=== PATIENT | male | born 1945 | race Caucasian/White ===

== ENCOUNTER 2022-01-27 18:40 | Inpatient (IN) | payer OTHER ==
[~2022-01-27] VITALS: Ht 172.7 cm; Wt 86.2 kg
[2022-01-27] MEDS ORDERED: HYDCHL25 PO (18:55)
[2022-01-27] MEDS ORDERED: LOSA25 PO (18:55)
--- NOTE | 2022-01-28 04:56 | NUR ---
SHIFT SUMMARY: PT IS ALERT AND ORIENTED. PT IS CALM AND COOPERATIVE WITH CARE. PT CALLS APPROPRIATELY. PT IS INDEPENDENT IN THE ROOM. PT DENIES PAIN, NAUSEA, VOMITING, AND SOB. PT TO HAVE AN ECHO THIS AM. PT SLEPT MUCH OF THE NIGHT WHEN NOT DISTURBED. NO ACUTE CHANGES OR COMPLICATIONS THIS SHIFT. BED IN LOW POSITION, CALL LIGHT WITHIN REACH. WILL REPORT TO DAY NURSE.
[2022-01-28 06:30] LABS: Albumin, Blood 3.5 g/dL (3.4-5.0); Albumin/Globulin Ratio 1.3 (0.8-1.8); Bun/Creatinine Ratio 24.1 (12.0-20.0); Calcium, Blood 9.1 mg/dL (8.5-10.1); Globulin, Blood 2.6 g/dL (2.2-4.0); Potassium, Blood 3.4 mmol/L (3.5-5.5); Total Protein, Blood 6.1 g/dL (6.4-8.2)
--- NOTE | 2022-01-28 18:39 | NUR ---
SHIFT SUMMARY: PT A&O, PT WAITING ON ECHOCARDIOGRAM TO BE COMPLETED BEFORE DISCHARGE. IF PT NOT ABLE TO COMPLETED ECHOCARDIOGRAM THE PT REQUESTED TO BE DISCHARGE HOME WITH . DR. GLORIA IS AWARE AND SPOKE WITH PT ABOUT OPTIONS FOR COMPLETEING THE ECHO WHILE ADMITTED AND OUTPATIENT OPTIONS. PT IS RESTING IN BED WITH NO COMPLAINTS OF PAIN OR DISCOMFORT THROUGHOUT THE SHIFT. CVALL LIGHT WITHIN REACH.
--- NOTE | 2022-01-29 05:31 | NUR ---
SHIFT SUMMARY: PT IS ALERT AND ORIENTED. PT IS CALM AND COOPERATIVE WITH CARE. PT CALLS APPROPRIATELY. PT IS INDEPENDENT IN THE ROOM. PT DENIES PAIN, NAUSEA, VOMITING, AND SOB. ECHO SCHEDULED FOR TODAY, PROBABLE DC AFTER. BED IN LOW POSITION, CALL LIGHT WITHIN REACH. WILL REPORT TO DAY NURSE.
--- NOTE | 2022-01-29 18:47 | NUR ---
SHIFT SUMMARY: PT A&O, PLEASANT. PT COMPLETED ECHO RESULT READ BY . DR. ZAMAN ORDERED MEDICAL AUTHORIZATION SPECIALIST CONSULT. DR. MOROCHO WAS PAGED, SHE ORDERED CHEST X-RAY 2V, STRICT I&0'S. PT CONTIUNED ON IV LASIX AND PO POTASSIUM. PT PRESENT WITH PHONE CALL TO DR. ZAMAN ON RESULTS OF ECHO. PT HAS FINE CRACKLES IN HIS RIGHT MID LOBE. PT GETS SOB ON EXTERTION. PT RESTING IN BED WITH CALL LIGHT WITHIN REACH.
--- NOTE | 2022-01-30 01:11 | NUR ---
SHIFT SUMMARY PLEASANT 76-YEAR-OLD MALE, FULL CODE. A&O X4. INDEPENDENT IN ROOM, CONTINENT. REGULAR DIET. PTN HAD CARDIAC CONSULT AND POSSIBLE CARDIAC CATHETERIZATION IN MORNING, SO NPO AFTER MIDNIGHT IN THE CASE OF THIS PROCEDURE. PRIOR TO THAT FLUID RESTRICTION AT 1500 CC SET. NEW PERIPHERAL IV PLACED IN LEFT FOREARM THIS SHIFT. CONTINUE TO MONITOR.
[2022-01-30 04:45] LABS: BASOPHILS ABSOLUTE AUTO 0.04 K/mm3 (0.00-0.23); BASOPHILS PERCENT AUTO 1 % (0-2); EOSINOPHILS ABSOLUTE AUTO 0.06 K/mm3 (0.00-0.68); EOSINOPHILS PERCENT AUTO 1 % (0-6); Hematocrit 45.2 % (37.0-53.0); Hemoglobin 14.7 g/dL (13.5-17.5); IMMATURE GRAN ABSOLUTE AUTO 0.05 K/mm3 (0.00-0.10); IMMATURE GRAN PERCENT AUTO 1 % (0-1); LYMPHOCYTES ABSOLUTE AUTO 1.93 K/mm3 (0.84-5.20); LYMPHOCYTES PERCENT AUTO 22 % (21-46); MONOCYTES ABSOLUTE AUTO 0.81 K/mm3 (0.16-1.47); MONOCYTES PERCENT AUTO 9 % (4-13); Mean Corpuscular HGB 29.9 pg (26.0-34.0); Mean Corpuscular HGB Conc 32.5 g/dL (31.5-36.5); Mean Corpuscular Volume 92 fL (80-100); NEUTROPHILS ABSOLUTE AUTO 5.98 K/mm3 (1.96-9.15); NEUTROPHILS PERCENT AUTO 67 % (41-73); Platelet Count 234 K/mm3 (150-400); RDW Standard Deviation 46.6 fL (35.1-46.3); Red Blood Cell Count 4.92 M/mm3 (4.30-5.90); White Blood Cell Count 8.87 K/mm3 (4.00-11.30)
[2022-01-30 04:48] LABS: Mean Platelet Volume 13.7 fL (9.1-12.4)
[2022-01-30 05:08] LABS: Alanine Aminotransfer (ALT/SGP 49 U/L (12-78); Anion Gap 8 mmol/L (6-16); Aspartate Aminotrans (AST/SGOT 42 U/L (12-37); Blood Urea Nitrogen 29 mg/dL (8-24); Bun/Creatinine Ratio 29.6 (12.0-20.0); CHOL/HDL RATIO 3.8; CO2, Blood 27 mmol/L (21-32); Calcium, Blood 9.6 mg/dL (8.5-10.1); Chloride, Blood 101 mmol/L (98-108); Cholesterol 117 mg/dL (50-200); Creatinine, Blood 0.98 mg/dL (0.60-1.20); Glomerular Filtration Rate 80 (60-); Glucose, Blood 143 mg/dL (70-99); HDL Cholesterol 31 mg/dL (>39); LDL/HDL RATIO 2.2; Low Density Lipoprotein Chol 68 mg/dL (0-110); Potassium, Blood 3.9 mmol/L (3.5-5.5); Sodium, Blood 136 mmol/L (136-145); Triglycerides 91 mg/dL (30-160); Very Low Density Lipoprot Chol 18 mg/dL (6-32)
--- NOTE | 2022-01-30 05:41 | NUR ---
This customs entry writer assumed care of patient after 214. Patient has expressed no needs this am. He has been NPO for possible proceedure. He has been sitting on the edge of the bed, and resting lying down. Tele shows sinus tach/sinus rhythm with BBB and occ PAC's. Will continue to monitor.
[2022-01-30] MEDS ORDERED: FURO20 PO (12:28)
[2022-01-30] MEDS ORDERED: POTA10T PO (12:29)
--- NOTE | 2022-01-30 14:17 | NUR ---
DISCHARGE SUMMARY: PT EDUCATED ON DISCHARGE INSTRUCTIONS, MEDICATIONS AND FOLLOW-UP CARE PLAN. RECORDS PRINTED AND SENT WITH PT TO TAKE TO [facility]. PT COMPLETED POLST COMFORT MEASURES ONLY AND DR. ZAMAN SIGNED PRIOR TO LEAVING. ASSISTED PT WITH PACKING UP BELONGINGS AND IV REMOVED. PT ESCORTED TO POV WITH BY DYE MACHINE OPERATOR VIA WC.
== END 2022-01-30 14:01 | disposition home or self-care (01) | DRG 291 ==
LOC: ER 18:40 → ERHOLD 18:41 → MEDS 18:41
PROVIDERS: Internal Medicine Cardiovascular Disease; Student in an Organized Health Care Education/Training Program; ADMIT Internal Medicine
DX: I11.0 Hypertensive heart disease with heart failure (principal); I50.41 Acute combined systolic (congestive) and diastolic (congestive) heart failure; E78.5 Hyperlipidemia, unspecified; I50.811 Acute right heart failure; I35.0 Nonrheumatic aortic (valve) stenosis; E11.9 Type 2 diabetes mellitus without complications; I50.82 Biventricular heart failure; I71.2 Thoracic aortic aneurysm, without rupture; E87.6 Hypokalemia; J44.9 Chronic obstructive pulmonary disease, unspecified; Z86.16 Personal history of COVID-19; Z87.891 Personal history of nicotine dependence; Z87.442 Personal history of urinary calculi; Z85.828 Personal history of other malignant neoplasm of skin; Z98.890 Other specified postprocedural states; Z88.4 Allergy status to anesthetic agent; Z79.899 Other long term (current) drug therapy
CPT/HCPCS: 36415; 71046; 80048; 80053; 80061; 83036; 84443; 84450; 84460; 84484; 85025; 93005; 93010; 93306; 94760; 99285-25; A9270; G0378; J1650; J1940

== ENCOUNTER 2022-02-01 16:07 | Inpatient (IN) | payer OTHER ==
[~2022-02-01] VITALS: Ht 172.7 cm; Wt 83.4 kg
[~2022-02-01 16:07] MED LIST: FURO20 PO; HYDCHL25 PO; LOSA25 PO; POTA10T PO
[2022-02-01 16:51] LABS: BASOPHILS ABSOLUTE AUTO 0.03 K/mm3 (0.00-0.23); BASOPHILS PERCENT AUTO 0 % (0-2); EOSINOPHILS PERCENT AUTO 0 % (0-6); Hematocrit 44.9 % (37.0-53.0); Hemoglobin 14.8 g/dL (13.5-17.5); IMMATURE GRAN ABSOLUTE AUTO 0.06 K/mm3 (0.00-0.10); IMMATURE GRAN PERCENT AUTO 1 % (0-1); LYMPHOCYTES ABSOLUTE AUTO 1.27 K/mm3 (0.84-5.20); LYMPHOCYTES PERCENT AUTO 13 % (21-46); MONOCYTES ABSOLUTE AUTO 1.13 K/mm3 (0.16-1.47); MONOCYTES PERCENT AUTO 11 % (4-13); Mean Corpuscular Volume 91 fL (80-100); Mean Platelet Volume 13.7 fL (9.1-12.4); NEUTROPHILS ABSOLUTE AUTO 7.46 K/mm3 (1.96-9.15); NEUTROPHILS PERCENT AUTO 75 % (41-73); Platelet Count 210 K/mm3 (150-400); RDW Coefficient Variation 14.1 % (11.7-14.2); RDW Standard Deviation 46.4 fL (35.1-46.3); Red Blood Cell Count 4.93 M/mm3 (4.30-5.90); White Blood Cell Count 9.95 K/mm3 (4.00-11.30)
[2022-02-01] MEDS ORDERED: Vitamin D1000 UNI1 PO (17:00)
[2022-02-01] MEDS ORDERED: ASCO500 PO (17:01)
[2022-02-01] MEDS ORDERED: B-12500 MC2 PO (17:01)
[2022-02-01] MEDS ORDERED: LOSA25 PO (17:02)
[2022-02-01 17:17] LABS: Magnesium, Blood 2.2 mg/dL (1.6-2.4)
[2022-02-01 17:30] LABS: Albumin, Blood 4.1 g/dL (3.4-5.0); Albumin/Globulin Ratio 1.5 (0.8-1.8); Bilirubin, Total 2.1 mg/dL (0.1-1.0); Bun/Creatinine Ratio 33.6 (12.0-20.0); Calcium, Blood 9.3 mg/dL (8.5-10.1); Creatinine, Blood 1.13 mg/dL (0.60-1.20); Globulin, Blood 2.7 g/dL (2.2-4.0); Potassium, Blood 4.6 mmol/L (3.5-5.5); Total Protein, Blood 6.8 g/dL (6.4-8.2)
[2022-02-01 22:37] LABS: International Normalized Ratio 1.59; Prothrombin Time Results 16.2 Sec (9.7-11.5)
--- NOTE | 2022-02-02 00:01 | NUR ---
PT ARRIVED TO ROOM FROM ED AT 2051 VIA W/C. V/S OBTAINED. URINAL AT BEDSIDE. C/O ORTHOPNEA AND DYSPNEA UPON EXERTION; SPO2 >92% ON RA. LUNG SOUNDS CLEAR WITHOUT RHONCI OR RALES.
--- NOTE | 2022-02-02 00:05 | NUR ---
CALL TO CARDIOLOGY OFFICE R/T CONSULT W/ DR LIZ. SPOKE WITH KAREEM @ ANSWERING SERVICE. PT WILL BE SEEN @ 0700 TODAY.
--- NOTE | 2022-02-02 00:54 | NUR ---
PT NOTED TO BE AWAKE DURING ROUNDS. C/O ORTHOPNEA. ALL LIQUIDS REMOVED FROM SIDE OF BED D/T NPO AFTER MIDNIGHT STATUS. PT VOICES UNDERSTANDING. SPOT2 >98%.
--- NOTE | 2022-02-02 04:37 | NUR ---
A&Ox4. PLEASANT AND COOPERATIVE WITH CARE. NOCTURIA R/T IV LASIX GIVEN AT 2200. AMBULATES INDEPENDENTLY WITHIN ROOM. DYSPNEA UPON EXERTION AND ORTHOPNEA NOTED WITH NONPRODUCTIVE COUGH. SCHEDULED TO BE SEEN BY MILLING MACHINE TENDER IN AM AND HAS BEEN NPO SINCE MIDNIGHT. WILL REPORT TO ONCOMING RN.
[2022-02-02 05:37] LABS: BASOPHILS ABSOLUTE AUTO 0.05 K/mm3 (0.00-0.23); BASOPHILS PERCENT AUTO 0 % (0-2); EOSINOPHILS PERCENT AUTO 0 % (0-6); Hematocrit 45.1 % (37.0-53.0); Hemoglobin 15.1 g/dL (13.5-17.5); IMMATURE GRAN PERCENT AUTO 1 % (0-1); LYMPHOCYTES ABSOLUTE AUTO 1.03 K/mm3 (0.84-5.20); LYMPHOCYTES PERCENT AUTO 7 % (21-46); MONOCYTES ABSOLUTE AUTO 1.78 K/mm3 (0.16-1.47); MONOCYTES PERCENT AUTO 12 % (4-13); Mean Corpuscular HGB 30.2 pg (26.0-34.0); Mean Corpuscular HGB Conc 33.5 g/dL (31.5-36.5); Mean Corpuscular Volume 90 fL (80-100); NEUTROPHILS ABSOLUTE AUTO 12.22 K/mm3 (1.96-9.15); NEUTROPHILS PERCENT AUTO 80 % (41-73); Platelet Count 200 K/mm3 (150-400); RDW Standard Deviation 45.1 fL (35.1-46.3); White Blood Cell Count 15.28 K/mm3 (4.00-11.30)
[2022-02-02 05:49] LABS: Mean Platelet Volume 14.3 fL (9.1-12.4)
[2022-02-02 08:12] LABS: Albumin, Blood 3.8 g/dL (3.4-5.0); Albumin/Globulin Ratio 1.4 (0.8-1.8); Bilirubin, Total 2.6 mg/dL (0.1-1.0); Bun/Creatinine Ratio 38.5 (12.0-20.0); Calcium, Blood 8.7 mg/dL (8.5-10.1); Creatinine, Blood 1.22 mg/dL (0.60-1.20); Globulin, Blood 2.8 g/dL (2.2-4.0); Potassium, Blood 4.4 mmol/L (3.5-5.5); Total Protein, Blood 6.6 g/dL (6.4-8.2)
[2022-02-02 12:52] LABS: SARS-Cov-2 (COVID-19) PCR, MMC NEGATIVE (NEGATIVE)
--- NOTE | 2022-02-02 14:06 | NUR ---
Brief supportive visit this afternoon. Pt resting in bed with his eyes closed. Pt wakes to gentle verbal stimuli. Pt denies pain and dyspnea at this time. Pt struggles with staying awake with eyes drifting closed. Pt reports being and having 4 children of his own and his having 3 children of her own. He [place] all [place] report splan for angiogram today. Pt continues struggling with staying awake. Ended visit to allow Pt to rest. Pt agreeable for this RN to return tomorrow for F/U visit.
--- NOTE | 2022-02-02 16:51 | NUR ---
Shift Summary A/O, independent to bathroom. Voiding in urinal as instructed for strict I/O. Denies pain. Tele: SR 83 PVC's. Cath is pending improvement in liver enzymes. Per Dr. Eugene, patient can eat until further notice. Last BP 99/87.
--- NOTE | 2022-02-03 04:55 | NUR ---
A&Ox4. PLEASANT BUT FORGETS TO CALL. BED ALARM ON, BUT IS VERY QUIET; AUDIBLE IF DOOR LEFT OPEN TO PT ROOM. VSS. FALL AROUND 0245 RESULTING IN LEFT-SIDED RIB PAIN. NO LOC OR HEAD INJURY. 1PA FOR AMBULATION AND TRANSFERS. REQUESTS A SHOWER TODAY. REPORT TO ONCOMING RN.
--- NOTE | 2022-02-03 05:00 | NUR ---
A&Ox4. PLEASANT AND COOPERATIVE WITH CARE. TELE @ 4576 SINUS @ 85bpm W/ PACs & BUNDLE BRANCH BLOCK WITH A FEW RUNS OF BIGEMINY. AMBULATES INDEPENDENTLY WITHIN ROOM. CRACKLES NOTED IN BILATERAL LUNG BASES. VSS STABLE. WILL REPORT TO ONCOMING NURSE.
[2022-02-03 06:06] LABS: BASOPHILS ABSOLUTE AUTO 0.05 K/mm3 (0.00-0.23); BASOPHILS PERCENT AUTO 0 % (0-2); EOSINOPHILS ABSOLUTE AUTO 0.03 K/mm3 (0.00-0.68); EOSINOPHILS PERCENT AUTO 0 % (0-6); Hematocrit 49.8 % (37.0-53.0); Hemoglobin 16.3 g/dL (13.5-17.5); IMMATURE GRAN ABSOLUTE AUTO 0.07 K/mm3 (0.00-0.10); IMMATURE GRAN PERCENT AUTO 1 % (0-1); LYMPHOCYTES ABSOLUTE AUTO 2.32 K/mm3 (0.84-5.20); LYMPHOCYTES PERCENT AUTO 18 % (21-46); MONOCYTES ABSOLUTE AUTO 1.12 K/mm3 (0.16-1.47); MONOCYTES PERCENT AUTO 9 % (4-13); Mean Corpuscular HGB 30.1 pg (26.0-34.0); Mean Corpuscular HGB Conc 32.7 g/dL (31.5-36.5); Mean Corpuscular Volume 92 fL (80-100); NEUTROPHILS ABSOLUTE AUTO 9.15 K/mm3 (1.96-9.15); NEUTROPHILS PERCENT AUTO 72 % (41-73); Platelet Count 209 K/mm3 (150-400); RDW Coefficient Variation 14.4 % (11.7-14.2); RDW Standard Deviation 47.2 fL (35.1-46.3); Red Blood Cell Count 5.42 M/mm3 (4.30-5.90); White Blood Cell Count 12.74 K/mm3 (4.00-11.30)
[2022-02-03 06:14] LABS: Albumin, Blood 4.2 g/dL (3.4-5.0); Albumin/Globulin Ratio 1.3 (0.8-1.8); Bilirubin, Total 2.2 mg/dL (0.1-1.0); Bun/Creatinine Ratio 43.8 (12.0-20.0); Calcium, Blood 9.2 mg/dL (8.5-10.1); Creatinine, Blood 1.12 mg/dL (0.60-1.20); Globulin, Blood 3.3 g/dL (2.2-4.0); Potassium, Blood 4.6 mmol/L (3.5-5.5); Total Protein, Blood 7.5 g/dL (6.4-8.2)
[2022-02-03 06:26] LABS: Mean Platelet Volume 14.2 fL (9.1-12.4)
--- NOTE | 2022-02-03 09:28 | NUR ---
Dr. SANTANA NOTIFIED ABOUT PROLONGED QT
--- NOTE | 2022-02-03 09:30 | NUR ---
EKG PROLONGED QT CONFIRMED ON 12 LEAD EKG
[2022-02-03 10:10] LABS: HBSAG SCREEN Negative (Negative); HCV AB <0.1 (0.0-0.9); HEP A AB, IGM Negative (Negative); HEP B CORE AB, IGM Negative (Negative)
[2022-02-03 14:38] LABS: International Normalized Ratio 1.53; Prothrombin Time Results 15.6 Sec (9.7-11.5)
--- NOTE | 2022-02-03 18:31 | NUR ---
SHIFT SUMMARY PT A&OX4 AND IN PLEASENT MOOD T/O SHIFT. CRIT LA REPORTED TO DR. LU INITIATED THIS SHIFT PER DR. CHO. TOLERATING MIN AMOUNT OF PO INTAKE, PT STATES, " I DON'T EAT SO MY STOMACH IS SHRUNK." CALL LIGHT W/IN REACH. COUGHING NOTED W/ SPUTUM. CALL LIGHT W/IN REACH.
--- NOTE | 2022-02-03 22:01 | NUR ---
CALLED REQUESTING UPDATE ON PT STATUS. REVIEWED PROVIDER NOTES AND CONSULTATIONS T/O DAY AND UPDATED HER.
--- NOTE | 2022-02-04 00:19 | NUR ---
PT AWAKE DURING SHIFT REPORT. PLEASANT AND CO-OP WITH CARE. SITTING UP TO EOB TALKING WITH EARLY INTO SHIFT. NAC INFUSING PER EMAR. PT INDEPENDENT IN RM TO BTHRM; MOSTLY USING URINAL AT BS. SR ON TELE WITH A COUPLE OF SHORT RUNS OF PVC'S; POSSIBLY FROM COUGHING. PER SHIFT REPORT, LIVER US COMPLETE TODAY. PT TO HAVE ANGIO AFTER LIVER ENZYMES NORMAIZE. DENIED FURTHER NEEDS AT THIS TIME. CALL LT IN REACH.
--- NOTE | 2022-02-04 01:19 | NUR ---
PT UP MOST OF NIGHT, SO FAR, WITH ORTHOPNEA AND DYSPNEA. BY THE TIME HE GETS BACK IN BED, HE IS OUT OF BREATH AGAIN. RECLINER BROUGHT TO ROOM AND PT EXPERIENCED IMMEDIATE RELIEF.
[2022-02-04 05:04] LABS: BASOPHILS ABSOLUTE AUTO 0.04 K/mm3 (0.00-0.23); BASOPHILS PERCENT AUTO 0 % (0-2); EOSINOPHILS PERCENT AUTO 0 % (0-6); Hematocrit 46.6 % (37.0-53.0); Hemoglobin 15.2 g/dL (13.5-17.5); IMMATURE GRAN PERCENT AUTO 1 % (0-1); LYMPHOCYTES ABSOLUTE AUTO 1.32 K/mm3 (0.84-5.20); LYMPHOCYTES PERCENT AUTO 11 % (21-46); MONOCYTES ABSOLUTE AUTO 1.29 K/mm3 (0.16-1.47); MONOCYTES PERCENT AUTO 11 % (4-13); Mean Corpuscular HGB Conc 32.6 g/dL (31.5-36.5); Mean Corpuscular Volume 92 fL (80-100); Mean Platelet Volume 14.2 fL (9.1-12.4); NEUTROPHILS ABSOLUTE AUTO 9.38 K/mm3 (1.96-9.15); NEUTROPHILS PERCENT AUTO 77 % (41-73); NRBC ABSOLUTE 0.02 K/mm3 (0.00-0.02); NRBC Auto 0.2 /100 WBC (0.0-0.2); Platelet Count 207 K/mm3 (150-400); RDW Coefficient Variation 14.4 % (11.7-14.2); RDW Standard Deviation 46.9 fL (35.1-46.3); Red Blood Cell Count 5.06 M/mm3 (4.30-5.90); White Blood Cell Count 12.13 K/mm3 (4.00-11.30)
[2022-02-04 05:16] LABS: International Normalized Ratio 1.79; Prothrombin Time Results 18.1 Sec (9.7-11.5)
[2022-02-04 05:17] LABS: Albumin, Blood 3.5 g/dL (3.4-5.0); Albumin/Globulin Ratio 1.2 (0.8-1.8); Bilirubin, Total 2.2 mg/dL (0.1-1.0); Bun/Creatinine Ratio 44.9 (12.0-20.0); Calcium, Blood 8.8 mg/dL (8.5-10.1); Creatinine, Blood 1.07 mg/dL (0.60-1.20); Globulin, Blood 2.9 g/dL (2.2-4.0); Potassium, Blood 3.6 mmol/L (3.5-5.5); Total Protein, Blood 6.4 g/dL (6.4-8.2)
--- NOTE | 2022-02-04 06:12 | NUR ---
RECEIVED CALL FROM SANDY CABALLERO IN LAB. PT LACTIC ACID 4.3. SCULPTURE INSTRUCTOR AND ON-CALL NOTIFIED. NO NEW ORDERS FROM DR NOYOLA.
--- NOTE | 2022-02-04 07:30 | NUR ---
A&Ox4. PLEASANT AND COOPERATIVE WITH CARE. DYSPNEA AND ORTHOPNEA IMPROVED WITH USE OF RECLINER. POWERGLIDE ALAN PATENT, FLUSHING AND DRAWS. INFUSING N-ACETYLCYSTEIN; DOSE ADJUSTED FOR FLUID RESTRICTION PER PHARMACY. UNABLE TO LOCATE FLUID RESTRICTION ORDERS IN CHART. MULTIPLE ABNL RUNS ON TELE WHICH WERE TIMED WITH COUGHING FITS HE STATES R/T "TOO MUCH LIQUIDS". VSS. O2 >95% RA DESPITE SOB WITH EXERTION. CRACKLES IN BILATERAL LUNGS. REPORT TO ONCOMING RN.
--- NOTE | 2022-02-04 18:51 | NUR ---
SHIFT SUMMARY PT A&OX 4 AND IN PLEASENT MOOD T/O SHIFT. PT APPEARS MORE DROWSEY THIS SHIFT, PT RESTING IN BED T/O SHIFT. TOLERATING MIN. AMOUNTS OF ORAL INTAKE, C/O QUALITY OF FOOD. CALL LIGHT W/IN REACH. VSS. CONT. IV ABX. UP SBA W/ STEADY GAIT.
--- NOTE | 2022-02-05 04:08 | NUR ---
PT IS A/OX4, PLEASANT AND COOPERATIVE, THE PT APPEARS TO BE BREATHING EASILY ON RA AT THIS TIME. THE PT DENIED ANY CHEST PAIN. PER ART CONSULTANT THE PT HAD A SHORT 5 BEAT RUN OF V-TACH THIS AM. CALL LIGHT IN REACH. WILL CONTINUE TO MONITOR AND ASSESS FOR CHANGES
[2022-02-05 05:56] LABS: BASOPHILS ABSOLUTE AUTO 0.06 K/mm3 (0.00-0.23); BASOPHILS PERCENT AUTO 1 % (0-2); EOSINOPHILS ABSOLUTE AUTO 0.08 K/mm3 (0.00-0.68); EOSINOPHILS PERCENT AUTO 1 % (0-6); Hematocrit 44.2 % (37.0-53.0); Hemoglobin 14.4 g/dL (13.5-17.5); IMMATURE GRAN ABSOLUTE AUTO 0.06 K/mm3 (0.00-0.10); IMMATURE GRAN PERCENT AUTO 1 % (0-1); LYMPHOCYTES ABSOLUTE AUTO 1.82 K/mm3 (0.84-5.20); LYMPHOCYTES PERCENT AUTO 19 % (21-46); MONOCYTES ABSOLUTE AUTO 0.95 K/mm3 (0.16-1.47); MONOCYTES PERCENT AUTO 10 % (4-13); Mean Corpuscular HGB 30.1 pg (26.0-34.0); Mean Corpuscular HGB Conc 32.6 g/dL (31.5-36.5); Mean Corpuscular Volume 92 fL (80-100); NEUTROPHILS ABSOLUTE AUTO 6.83 K/mm3 (1.96-9.15); NEUTROPHILS PERCENT AUTO 70 % (41-73); Platelet Count 186 K/mm3 (150-400); RDW Coefficient Variation 14.5 % (11.7-14.2); RDW Standard Deviation 47.4 fL (35.1-46.3); Red Blood Cell Count 4.79 M/mm3 (4.30-5.90)
[2022-02-05 06:08] LABS: Mean Platelet Volume 14.1 fL (9.1-12.4)
[2022-02-05 06:11] LABS: International Normalized Ratio 1.45; Prothrombin Time Results 14.9 Sec (9.7-11.5)
[2022-02-05 06:18] LABS: Albumin/Globulin Ratio 1.2 (0.8-1.8); Bun/Creatinine Ratio 31.4 (12.0-20.0); Calcium, Blood 8.3 mg/dL (8.5-10.1); Creatinine, Blood 1.18 mg/dL (0.60-1.20); Globulin, Blood 2.6 g/dL (2.2-4.0); Potassium, Blood 3.1 mmol/L (3.5-5.5); Total Protein, Blood 5.6 g/dL (6.4-8.2)
[2022-02-05 12:16] LABS: Albumin, Blood 3.2 g/dL (3.4-5.0); Anion Gap 6 mmol/L (6-16); Blood Urea Nitrogen 37 mg/dL (8-24); Bun/Creatinine Ratio 34.6 (12.0-20.0); CO2, Blood 32 mmol/L (21-32); Calcium, Blood 8.5 mg/dL (8.5-10.1); Chloride, Blood 101 mmol/L (98-108); Creatinine, Blood 1.07 mg/dL (0.60-1.20); Glomerular Filtration Rate 72 (60-); Glucose, Blood 179 mg/dL (70-99); Magnesium, Blood 2.5 mg/dL (1.6-2.4); Phosphorus, Blood 2.7 mg/dL (2.5-4.9); Potassium, Blood 3.5 mmol/L (3.5-5.5); Sodium, Blood 139 mmol/L (136-145)
--- NOTE | 2022-02-05 12:52 | NUR ---
DR PURVIS NOTIFIED ABOUT ASYMPTOMATIC BOUTS OF VTACH
[2022-02-05] MEDS ORDERED: METO25ER PO (13:40)
[2022-02-05] MEDS ORDERED: SPIR25 PO (13:40)
--- NOTE | 2022-02-05 16:30 | NUR ---
DISCHARGE PT A&OX 4 @ TIME OF DC. PT PROVIDED W/ WRITTEN AND VERBAL DIRECTION. PT VERBALIZED UNDERSTANDING. TELE DC'ED, POWERGLIDE DC'ED. PT ESCORTED OUT VIA WC, SPOUSE TO PROVIDE TRANSPORT HOME TO [place]. MEDS FAX[place] TO [facility] [place].
== END 2022-02-05 16:30 | disposition home or self-care (01) | DRG 291 ==
LOC: ER 16:07 → MEDS 18:42 → ERHOLD 18:42 → MEDS 20:50
PROVIDERS: Emergency Medicine; Internal Medicine; ADMIT Internal Medicine
DX: I11.0 Hypertensive heart disease with heart failure (principal); I50.43 Acute on chronic combined systolic (congestive) and diastolic (congestive) heart failure; K72.00 Acute and subacute hepatic failure without coma; Z20.822 Contact with and (suspected) exposure to COVID-19; J44.9 Chronic obstructive pulmonary disease, unspecified; E11.9 Type 2 diabetes mellitus without complications; I08.3 Combined rheumatic disorders of mitral, aortic and tricuspid valves; I27.20 Pulmonary hypertension, unspecified; Z79.899 Other long term (current) drug therapy; Z88.8 Allergy status to other drugs, medicaments and biological substances; Z87.891 Personal history of nicotine dependence; Z98.890 Other specified postprocedural states; R05.9 Cough, unspecified; I42.9 Cardiomyopathy, unspecified; R74.01 Elevation of levels of liver transaminase levels; Z86.16 Personal history of COVID-19; Z87.442 Personal history of urinary calculi
CPT/HCPCS: 36415; 71045; 76705; 80053; 80069; 80074; 82947; 83605; 83735; 83880; 84484; 85025; 85610; 87040; 93005; 93010; 93975; 96374; 96375; 99285-25; A9270; C1751; G0378; J0132; J0780; J1650; J1940; J2543; J7050; J7060; U0004